=== PATIENT | female | born 1970 | race Caucasian/White ===

== ENCOUNTER 2022-03-09 10:40 | Outpatient (CLI) | payer BC, SELFPAY ==
[2022-03-09 18:15] LABS: Vitamin D 25 Hydroxy* 30 ng/mL (30-80)
[2022-03-09 18:30] LABS: TSH With Reflex to FT4* 0.022 uIU/mL (0.270-4.200)
[2022-03-09 20:25] LABS: Free T4 Free Thyroxine* 1.76 ng/dL (0.70-1.85)
[2022-03-11 22:09] LABS: Total T3 127 ng/dL (80-200)
== END 2022-03-09 10:41 | disposition home or self-care (01) ==
PROVIDERS: PCP Nurse Practitioner Family; Visit Provider Nurse Practitioner Family
DX: F41.9 Anxiety disorder, unspecified (principal); E03.9 Hypothyroidism, unspecified
CPT/HCPCS: 82306; 84439; 84443; 84480

== ENCOUNTER 2022-04-08 13:49 | Emergency (ER) | payer BC, SELFPAY ==
[2022-04-08 13:55] VITALS: BP 140/86; PULSE 84; TEMP 37.4; O2SAT 98; BMI 19.4
--- NOTE | 2022-04-08 14:51 | ED_ITS ---
HPI - Anxiety General Chief Complaint: Anxiety Stated Complaint: Anxious Time Seen by Provider: 04/08/22 13:50 History of Present Illness HPI narrative: This 51-year-old female comes in with complaints of anxiety. She does not have a history of depression and anxiety but since her 24-year-old son has developed epilepsy she has had trouble sleeping and has lots of anxiety. She was seen by her primary physician a couple months ago and prescription for BuSpar and Xanax was provided. She was very cautious about starting something that could be come addictive but did benefit from the Xanax. She has not taken the BuSpar. She did increase her Xanax 0.5 mg intake up to 3 times a day which was consistent with the prescriptions provided for her. She realizes that she needs to taper off of this and has begun doing so. She has cut back to 2 tablets daily for 10 days and now is on 0.25 mg twice daily for 10 days. She has not tolerated this more recent decrease and comes in with lots of anxiety. She does not feel unsafe to herself. She states that she really does not have depression. She does have insomnia. Related Data Home Medications Medication Instructions Recorded Confirmed levothyroxine 88 mcg tablet 88 mcg PO QDAY 02/05/22 03/09/22 Previous Rx's Medication Instructions Recorded zolpidem 5 mg tablet 5 mg PO ONCE #10 tabs 02/05/22 buspirone 5 mg tablet 5 mg PO TID #60 tabs 03/09/22 cholecalciferol (vitamin D3) 1,250 1,250 mcg PO QWEEK #12 caps 03/12/22 mcg (50,000 unit) capsule levothyroxine 75 mcg tablet 75 mcg PO QDAY #90 tabs 03/12/22 alprazolam 0.5 mg tablet 0.5 mg PO Q6H #28 tabs 04/06/22 hydroxyzine HCl 25 mg tablet 25 mg PO QID #30 tabs 04/08/22 lorazepam 0.5 mg tablet (Ativan) 0.5 mg PO BID PRN #30 tabs 04/08/22 sertraline 50 mg tablet 50 mg PO DAILY #30 tabs 04/08/22 Allergies Allergy/AdvReac Type Severity Reaction Status Date / Time epinephrine Allergy Unknown Verified 02/11/22 15:25 Sulfa (Sulfonamide Allergy Unknown Rash Verified 02/11/22 15:25 Antibiotics) Review of Systems Status of ROS: Reports: 10 or more systems reviewed and unremarkable except as noted in History and below Narrative: Constitutional: No fevers, no weight gain or loss. Eyes: No discharge. No vision changes. HENT: No congestion, no sore throat, no ear pain. Cardiovascular: No chest pain, no palpitations. Respiratory: No shortness of breath, no wheezes, no cough. Gastrointestinal: No abdominal pain, no vomiting, no diarrhea. Genitourinary: No dysuria, no hematuria. Musculoskeletal: Normal range of motion. Skin: No rashes, no pruritis. Neurological: No dizziness, weakness, sensory change, speech change. Endo/Heme/Allergies: No bruising or bleeding. No polydipsia. Pysch: no suicidality. Anxiety and insomnia as described above. All other systems reviewed and are negative. [facility] Surgical History S/P S/P cholecystectomy Status post hysteroscopic ablation of endometrium Family History Family/Other Breast cancer Other Coronary artery disease Thyroid disease Social History Smoking Status: Never smoker Little interest or pleasure in doing things: not at all Feeling down, depressed, or hopeless: not at all Exam Narrative: Exam Narrative: Constitutional: Well-developed, well-nourished, no acute distress. HEENT: Normocephalic, atraumatic. Neck: Normal range of motion. Nontender. Supple. Heart: Regular. No murmurs. Normal rate. Intact distal pulses. Lungs: Clear to auscultation. No chest discomfort. No wheezes, rhonchi, or rales. Abdomen: Normal bowel sounds. Nontender. No rebound tenderness. Genitalia: Deferred. Back: No midline tenderness. Normal range of motion. Extremities: Normal range of motion. No injury. Skin: Intact. No rash. Warm. No erythema or pallor. Neurologic: No altered sensation. No weakness. Alert and oriented. Psychiatric: No suicidality. Anxiety symptoms. Tearful. She reports insomnia. Nursing notes and vitals signs are reviewed. Const: Vital Signs, click to edit/add: Vital Signs - 24 hr 04/08/22 13:55 Temperature 99.4 F Pulse Rate [Left P ulse Oximeter] 84 Blood Pressure [Le ft Upper Arm] 140/86 H Pulse Oximetry 98 Course Vital Signs Vital signs: Initial Vital Signs Temperature 99.4 F 04/08/22 13:55 Temperature Source Temporal Artery Scan 04/08/22 13:55 Pulse Rate 84 04/08/22 13:55 Blood Pressure 140/86 H 04/08/22 13:55 Blood Pressure Mean 104 04/08/22 13:55 Blood Pressure Position Sitting 04/08/22 13:55 Pulse Oximetry 98 04/08/22 13:55 Vital Signs Temperature 99.4 F 04/08/22 13:55 Pulse Rate 84 04/08/22 13:55 Blood Pressure 140/86 H 04/08/22 13:55 Pulse Oximetry 98 04/08/22 13:55 Temperature 99.4 F 04/08/22 13:55 Pulse Rate 84 04/08/22 13:55 Blood Pressure 140/86 H 04/08/22 13:55 Pulse Oximetry 98 04/08/22 13:55 MDM - Anxiety MDM Narrative Medical decision making narrative: This patient has lots of anxiety partly due to attempting to wean off of Xanax. Additionally she has anxiety regarding the health of her son. She did observe him having a tonic clonic seizure and this memory is wanting her. She has di fficulty with sleep at night. Her son has been diagnosed and has begun treatment for epilepsy and recently had a change of medicines as the adverse effects seem to be more troubling than benefit for her son. This patient is not on an antidepressant which would be recommended to treat her anxiety without using an addictive medication. It seems that her taper off of Xanax is a good plan but may be too aggressive currently. I recommended a trial of Zoloft and stated that it may be less edgy with regard to tolerance and adverse effects if she used Ativan instead of Xanax. I also recommended hydroxyzine for additional help with insomnia and anxiety. She is resolved in wanting to come off of a benzodiazepine but is struggling currently with this. I did provide prescription for Zoloft 50 mg daily and advised her to take it toward evening as it may be a bit sedating. I also prescribed hydroxyzine for additional anti anxiety and insomnia benefits. I did also provide prescription for Ativan. I recommended that she suspend her taper for a couple weeks and stay on a steady dose of Ativan 0.5 mg once or twice daily. After this time hopefully the Zoloft will help her and she can resume the taper from all benzodiazepines. The patient and her are agreeable with this plan. I did offer a [facility] mental assessment but in a process of shared decision making this was declined for now. Discharge Plan Discharge Clinical Impression: Insomnia, Anxiety Patient Disposition: Home, Self-Care Condition: Stable Additional Instructions: Start Zoloft 50 mg daily. Use hydroxyzine as needed for additional relief of anxiety and insomnia. Hold Xanax and use Ativan 0.5 mg once or twice daily for the next couple weeks after which time a taper from all benzodiazepines can continue. Prescriptions: New lorazepam [Ativan] 0.5 mg tablet 0.5 mg PO BID PRNQty: 30 0RF hydroxyzine HCl 25 mg tablet 25 mg PO QID Qty: 30 0RF sertraline 50 mg tablet 50 mg PO DAILY Qty: 30 2RF No Action levothyroxine 88 mcg tablet 88 mcg PO QDAY zolpidem 5 mg tablet 5 mg PO ONCE Qty: 10 0RF buspirone 5 mg tablet 5 mg PO TID Qty: 60 0RF cholecalciferol (vitamin D3) 1,250 mcg (50,000 unit) capsule 1,250 mcg PO QWEEK Qty: 12 0RF levothyroxine 75 mcg tablet 75 mcg PO QDAY Qty: 90 0RF alprazolam 0.5 mg tablet 0.5 mg PO Q6H Qty: 28 0RF Rx Instructions: Must last 2 full weeks. Follow Up/Referrals: Lidia Zuleta, HEALTH PROGRAM DIRECTOR [Primary Care Provider] - Stand Alone Forms: [employer] Info Instructions
== END 2022-04-08 15:21 | disposition home or self-care (01) ==
PROVIDERS: Emergency Provider Emergency Medicine Emergency Medical Services; PCP Nurse Practitioner Family
DX: F41.9 Anxiety disorder, unspecified (principal); G47.00 Insomnia, unspecified
CPT/HCPCS: 99283; 99284; 99285

== ENCOUNTER 2022-04-14 16:13 | Emergency (ER) | payer BC, SELFPAY ==
[2022-04-14 16:18] VITALS: BP 115/80; PULSE 78; RESP 18; TEMP 37.3; O2SAT 97; BMI 19.4
--- NOTE | 2022-04-14 16:28 | ED.GENADULT ---
HPI - General Adult General Time Seen by Provider: 16:29 Date Seen: 04/14/22 Chief complaint: Ear/Nose/Throat Problem Stated complaint: Inner ear infection Time Seen by Provider: 04/14/22 16:14 Source: patient Mode of arrival: ambulatory Limitations: no limitations History of Present Illness HPI narrative: Patient is a 51 white female the complaints complains of some right ear discomfort, feeling of fullness, no fever, no chills. Has not had a lot of ear problems in the past. No other complaints no fevers, no neck pain, no sore throat. Related Data Home Medications Medication Instructions Recorded Confirmed levothyroxine 88 mcg tablet 88 mcg PO QDAY 02/05/22 03/09/22 Previous Rx's Medication Instructions Recorded zolpidem 5 mg tablet 5 mg PO ONCE #10 tabs 02/05/22 buspirone 5 mg tablet 5 mg PO TID #60 tabs 03/09/22 cholecalciferol (vitamin D3) 1,250 1,250 mcg PO QWEEK #12 caps 03/12/22 mcg (50,000 unit) capsule levothyroxine 75 mcg tablet 75 mcg PO QDAY #90 tabs 03/12/22 alprazolam 0.5 mg tablet 0.5 mg PO Q6H #28 tabs 04/06/22 hydroxyzine HCl 25 mg tablet 25 mg PO QID #30 tabs 04/08/22 lorazepam 0.5 mg tablet (Ativan) 0.5 mg PO BID PRN #30 tabs 04/08/22 sertraline 50 mg tablet 50 mg PO DAILY #30 tabs 04/08/22 amoxicillin 250 mg capsule 250 mg PO TID #21 caps 04/14/22 Allergies Allergy/AdvReac Type Severity Reaction Status Date / Time epinephrine Allergy Unknown Verified 02/11/22 15:25 Sulfa (Sulfonamide Allergy Unknown Rash Verified 02/11/22 15:25 Antibiotics) Review of Systems Narrative: Negative four year problem sinusitis, upper respiratory symptoms, COVID symptoms. No cough PFSH PFSH Surgical History S/P S/P cholecystectomy Status post hysteroscopic ablation of endometrium Family History Family/Other Breast cancer Other Coronary artery disease Thyroid disease Social History Smoking Status: Never smoker Do you use any of these nicotine containing products: None Second hand tobacco smoke exposure: No How often do you have a drink containing alcohol: never How often do you have six or more drinks on one occasion: Never AUDIT-C Alcohol total score: 0 Non-prescribed substance use: denies use Little interest or pleasure in doing things: not at all Feeling down, depressed, or hopeless: not at all service: Yes Exam Narrative: Exam Narrative: Objective: Temperature 99.1? HEEnt; some wax in the right ear but the eardrum that I can see on the right looks like there is mild redness consistent with otitis media left TM clear throat clear neck is supple no facial asymmetry Const: Vital Signs, click to edit/add: Vital Signs - 24 hr 04/14/22 16:18 Temperature 99.1 F Pulse Rate [Right Pulse Oximeter] 78 Respiratory Rate 18 Blood Pressure [Le ft Upper Arm] 115/80 Pulse Oximetry 97 Oxygen Delivery Me thod Room Air Course Vital Signs Vital signs: Initial Vital Signs Temperature 99.1 F 04/14/22 16:18 Temperature Source Temporal Artery Scan 04/14/22 16:18 Pulse Rate 78 04/14/22 16:18 Respiratory Rate 18 04/14/22 16:18 Blood Pressure 115/80 04/14/22 16:18 Blood Pressure Mean 91 04/14/22 16:18 Pulse Oximetry 97 04/14/22 16:18 Oxygen Delivery Method 04/14/22 16:18 Vital Signs Temperature 99.1 F 04/14/22 16:18 Pulse Rate 78 04/14/22 16:18 Respiratory Rate 18 04/14/22 16:18 Blood Pressure 115/80 04/14/22 16:18 Pulse Oximetry 97 04/14/22 16:18 Oxygen Delivery Method 04/14/22 16:18 Temperature 99.1 F 04/14/22 16:18 Pulse Rate 78 04/14/22 16:18 Respiratory Rate 18 04/14/22 16:18 Blood Pressure 115/80 04/14/22 16:18 Pulse Oximetry 97 04/14/22 16:18 Oxygen Delivery Method 04/14/22 16:18 Medical Decision Making MDM Narrative Medical decision making narrative: Earwax removal drops recommended as well as amoxicillin 250 t.i.d. x7 days, Tylenol Advil as needed. Recheck not improving. patient has cerumen an otitis media Discharge Plan Discharge Clinical Impression: Otitis media Patient Disposition: Home, Self-Care Condition: Stable Additional Instructions: Debrox ear wax removal drops 3 drops to the right ear 3 times a day x5 days. Amoxicillin 250 t.i.d. times 7 days, Tylenol Advil as needed, follow up as needed. Activity Level: No Restrictions Discharge Diet: Regular Prescriptions: New amoxicillin 250 mg capsule 250 mg PO TID Qty: 21 0RF No Action levothyroxine 88 mcg tablet 88 mcg PO QDAY zolpidem 5 mg tablet 5 mg PO ONCE Qty: 10 0RF buspirone 5 mg tablet 5 mg PO TID Qty: 60 0RF lorazepam [Ativan] 0.5 mg tablet 0.5 mg PO BID PRNQty: 30 0RF hydroxyzine HCl 25 mg tablet 25 mg PO QID Qty: 30 0RF sertraline 50 mg tablet 50 mg PO DAILY Qty: 30 2RF cholecalciferol (vitamin D3) 1,250 mcg (50,000 unit) capsule 1,250 mcg PO QWEEK Qty: 12 0RF levothyroxine 75 mcg tablet 75 mcg PO QDAY Qty: 90 0RF alprazolam 0.5 mg tablet 0.5 mg PO Q6H Qty: 28 0RF Rx Instructions: Must last 2 full weeks. Follow Up/Referrals: Lidia Zuleta CNP [Primary Care Provider] - Stand Alone Forms: [facility] Info Instructions
--- OUTSIDE RECORDS SUMMARY | 2022-04-14 16:42 | XMS_ITS | Clinical Summary ---
:1970 Author Organization [employer] [facility] [place] [address] Care Team Providers Name Role Phone Austin Andino MD Primary Care Provider Unavailable Allergies No known active allergies Medications Medication Sig Dispensed Refills Start Date End Date Status levothyroxine Take 1 tablet by 0 11/12/2014 Active (SYNTHROID) 88 mcg mouth once tablet daily. Active Problems Not on file Social History Tobacco Use Types Packs/Day Years Used Date Never Smoker Smokeless Tobacco: Never Used Alcohol Use Standard Drinks/Week Comments No 0 (1 standard drink = 0.6 oz pure alcoho l) Sex Assigned at Date Recorded Not on file Obstetrics History Last Filed Vital Signs Vital Sign Reading Time Taken Comments Blood Pressure 116/70 11/12/2014 8:05 AM CDT Pulse 72 11/12/2014 8:05 AM CDT Temperature - - Respiratory Rate - - Oxygen Saturation 100% 11/12/2014 8:05 AM CDT Inhaled Oxygen Concentration - - Weight 51.7 kg (114 lb) 11/12/2014 8:05 AM CDT Height 165.1 cm (5' 5) 11/12/2014 8:05 AM CDT Body Mass Index 18.97 11/12/2014 8:05 AM CDT Plan of Treatment Health Maintenance Due Date Last Done Comments COVID-19 vaccine series (#1) 01/06/1969 Tdap 1979 Depression screening for age 12+ 1980 BMI (ht and wt on same day) for age 18+ 1986 Hepatitis C screening for age 18-79 1986 Tetanus booster 1988 Colonoscopy through age 75 2013 Lipids for age 45-75 2013 Mammogram for age 45-75 2013 Zoster (shingles) series for age 50+ (1 of 2018 2) Pap test for age 21-65 12/15/2020 12/15/2017, 12/15/2017 Influenza for age 50-64 03/04/2022 Results Not on filefrom Last 3 Months Insurance Payer Benefit Plan / Subscriber ID Effective Dates Phone Addre ss Type Group BLUE [employer]OSS BL[employer] OF [id number] 2017-Present [address] [place] [address] Care Teams Television Cabinet Finisher Relationship Specialty Start Date End Date Austin Andino MD PCP - General Obstetrics and Gynecology
== END 2022-04-14 16:44 | disposition home or self-care (01) ==
LOC: ED 16:41
PROVIDERS: Emergency Provider Family Medicine; PCP Nurse Practitioner Family
DX: H66.92 Otitis media, unspecified, left ear (principal)
CPT/HCPCS: 99282; 99283

== ENCOUNTER 2022-05-11 13:40 | Outpatient (CLI) | payer BC, SELFPAY ==
--- OUTSIDE RECORDS SUMMARY | 2022-05-11 13:50 | XMS_ITS | Clinical Summary ---
:1970 Author Organization [employer] [facility] [place] [address] Care Team Providers Name Role Phone Austin [...] Type Group BL[employer] OF [id number] 2017-Present [address] [place] [address] Care Teams Customer Engineering Specialist Relationship Specialty Start Date End Date Austin Andino MD PCP - General Obstetrics and Gynecology
== END 2022-05-11 13:41 | disposition home or self-care (01) ==
LOC: LONREF 13:40
PROVIDERS: PCP Nurse Practitioner Family; Visit Provider Family Medicine
DX: E03.9 Hypothyroidism, unspecified (principal)
CPT/HCPCS: 84443

== ENCOUNTER 2024-02-10 12:57 | Emergency (ER) | payer OTHER, SELFPAY ==
[2024-02-10 13:04] VITALS: BP 136/80; PULSE 78; RESP 18; TEMP 36.9; O2SAT 97; BMI 21.8
--- NOTE | 2024-02-10 13:44 | ED_ITS ---
HPI - General Adult General Chief complaint: Dizziness/Vertigo Stated complaint: dizzy, head concerns Time Seen by Provider: 02/10/24 13:09 History of Present Illness HPI narrative: This 53-year-old female comes in with her because of a couple months of vision changes with feeling of off balance and associated anxiety. She has been in to see eye specialists and has had her blood checked. She is scheduled for an MRI in 3 weeks but they come in today hoping to get an MRI sooner. She has started fluoxetine about 10 or 12 days ago and feels that this is starting to help some with her anxiety. She was at an healthcare science specialist to said that she had been ocular vision, that is her gaze is not conjugate it and causing the symptoms. She has had her thyroid checked. She does not report any other symptoms except she does have pretty significant headache that seems to be related to these symptoms. Related Data Home Medications ?Medication ?Instructions ?Recorded ?Confirmed fluoxetine 20 mg capsule 20 mg PO DAILY 02/10/24 02/10/24 hydroxyzine HCl 10 mg tablet 10 mg PO 3XD PRN panic attack 02/10/24 02/10/24 levothyroxine 88 mcg tablet 88 mcg PO DAILY 02/10/24 02/10/24 Previous Rx's ?Medication ?Instructions ?Recorded clobetasol 0.05 % topical ointment 1 applic topical QHS #15 grams 09/10/22 ketorolac 10 mg tablet 10 mg PO Q8H 5 days #15 tabs 02/10/24 methylprednisolone 4 mg tablets in See Rx Instructions PO .COMPLEX 02/10/24 a dose pack (Medrol (Carlyle)) #21 ea ondansetron HCl 4 mg tablet 4 mg PO Q6H #15 tabs 02/10/24 Allergies Allergy/AdvReac Type Severity Reaction Status Date / Time epinephrine Allergy Unknown Verified 02/10/24 13:11 Sulfa (Sulfonamide Allergy Unknown Rash Verified 02/10/24 13:11 Antibiotics) Review of Systems Status of ROS: Reports: 10 or more systems reviewed and unremarkable except as noted in History and below Narrative: Constitutional: No fevers, no weight gain or loss. Eyes: No discharge. Vision changes as described above. HENT: No congestion, no sore throat, no ear pain. Cardiovascular: No chest pain, no palpitations. Respiratory: No shortness of breath, no wheezes, no cough. Gastrointestinal: No abdominal pain, no vomiting, no diarrhea. Genitourinary: No dysuria, no hematuria. Musculoskeletal: Normal range of motion. Skin: No rashes, no pruritis. Neurological: No dizziness, weakness, sensory change, speech change. Endo/Heme/Allergies: No bruising or bleeding. No polydipsia. Pysch: no suicidality, no insomnia. She has anxiety symptoms. All other systems reviewed and are negative. [facility] Medical History H/O Graves' disease Surgical History S/P S/P cholecystectomy Status post hysteroscopic ablation of endometrium Family History Family/Other Breast cancer Other Coronary artery disease Thyroid disease Social History Smoking Status: Never smoker Do you use any of these nicotine containing products: None Second hand tobacco smoke exposure: No How often do you have a drink containing alcohol: never How often do you have six or more drinks on one occasion: Never AUDIT-C Alcohol total score: 0 Non-prescribed substance use: denies use Little interest or pleasure in doing things: not at all Feeling down, depressed, or hopeless: not at all service: Yes Exam Narrative: Exam Narrative: Constitutional: Well-developed, well-nourished, no acute distress. HEENT: Normocephalic, atraumatic. Neck: Normal range of motion. Nontender. Supple. Heart: Regular. No murmurs. Normal rate. Intact distal pulses. Lungs: Clear to auscultation. No chest discomfort. No wheezes, rhonchi, or rales. Abdomen: Normal bowel sounds. Nontender. No rebound tenderness. Genitalia: Deferred. Back: No midline tenderness. Normal range of motion. Extremities: Normal range of motion. No injury. Skin: Intact. No rash. Warm. No erythema or pallor. Neurologic: No altered sensation. No weakness. Alert and oriented. Psychiatric: No suicidality. No anxiety or depression. No insomnia. Nursing notes and vitals signs are reviewed. Const: Vital Signs, click to edit/add: Vital Signs - 24 hr 02/10/24 13:04 Temperature 98.5 F Pulse Rate [Pulse Oximeter] 78 Respiratory Rate 18 Blood Pressure [Ri ght Upper Arm] 136/80 Pulse Oximetry 97 Oxygen Delivery Me thod Room Air Course Vital Signs Vital signs: Initial Vital Signs Temperature 98.5 F 02/10/24 13:04 Temperature Source Temporal Artery Scan 02/10/24 13:04 Pulse Rate 78 02/10/24 13:04 Pulse Rhythm Regular 02/10/24 13:04 Pulse Strength 3+ Normal 02/10/24 13:04 Respiratory Rate 18 02/10/24 13:04 Blood Pressure 136/80 02/10/24 13:04 Blood Pressure Mean 98 02/10/24 13:04 Blood Pressure Position Sitting 02/10/24 13:04 Pulse Oximetry 97 02/10/24 13:04 Oxygen Delivery Method Room Air 02/10/24 13:04 Vital Signs Temperature 98.5 F 02/10/24 13:04 Pulse Rate 78 02/10/24 13:04 Respiratory Rate 18 02/10/24 13:04 Blood Pressure 136/80 02/10/24 13:04 Pulse Oximetry 97 02/10/24 13:04 Oxygen Delivery Method Room Air 02/10/24 13:04 Temperature 98.5 F 02/10/24 13:04 Pulse Rate 78 02/10/24 13:04 Respiratory Rate 18 02/10/24 13:04 Blood Pressure 136/80 02/10/24 13:04 Pulse Oximetry 97 02/10/24 13:04 Oxygen Delivery Method Room Air 02/10/24 13:04 Medications Administered Medications: Discontinued Medications Generic Name Dose Route Start Last Admin Trade Name Chriss PRN Reason Stop Dose Admin Lorazepam 1 mg 02/10/24 14:05 02/10/24 14:12 Lorazepam 1 Mg Tablet PO 02/10/24 14:06 1 mg ONCE ONE Administration Medical Decision Making MDM Narrative Medical decision making narrative: This patient comes in hoping to get an MRI sooner than what was scheduled about 3 weeks from now. I did check with availability and this was able to be arranged today. MRI of the head returns with no acute findings that would explain her symptoms. This was reassuring to the patient. She is in the process of trying to figure out what is causing her symptoms but does report that a healthcare science specialist said that there is some dysconjugate gaze. The patient also reports a headache with nausea symptoms. She is okay to be discharged home and will follow-up with her regular providers. I did provide prescription for Medrol Dosepak, Toradol, and Zofran. Imaging Data MRI - head: Radiologist's impression: 1. Punctate focus of hyperintensity on diffusion-weighted imaging in the right parietal lobe (series 5 image 41) likely representing a tiny subacute infarct. 2. No evidence of recent or remote intracranial hemorrhage. 3. Few scattered foci of T2 prolongation within the white matter of both cerebral hemispheres, nonspecific, but typical of mild chronic small vessel ischemic changes. Discharge Plan Discharge Clinical Impression: Dysconjugate gaze Patient Disposition: Home w/ Parent or Adult Condition: Stable Additional Instructions: Take medication as needed and indicated. Follow up with MD as scheduled. Return if worsening. Prescriptions: New ondansetron HCl 4 mg tablet 4 mg PO Q6H Qty: 15 0RF ketorolac 10 mg tablet 10 mg PO Q8H 5 Days Qty: 15 0RF methylprednisolone [Medrol (Carlyle)] 4 mg tablets,dose pack See Rx Instructions .ROUTE .COMPLEX Qty: 21 0RF Rx Instructions: orally per package directions No Action levothyroxine 88 mcg tablet 88 mcg PO DAILY hydroxyzine HCl 10 mg tablet 10 mg PO 3XD PRN (Reason: panic attack) fluoxetine 20 mg capsule 20 mg PO DAILY clobetasol 0.05 % ointment 1 applic topical QHS Qty: 15 1RF Rx Instructions: Apply twice weekly Follow Up/Referrals: Lidia Zuleta NET MOBILE DEVELOPER [Nurse Practitioner] - Stand Alone Forms: [facility] Info Instructions
--- NOTE | 2024-02-10 13:44 | CRLHL7_ITS ---
For Patients: As a result of the Century Cures Act, medical imaging exams and procedure reports are released immediately into your electronic medical record. You may view this report before your referring provider. If you have questions, please contact your health care provider. Indication: Vision changes. Technique: Multisequence multiplanar MRI of the brain without the use of intravenous contrast. Comparison: None available. Findings: Punctate focus of hyperintensity on diffusion-weighted imaging within the right parietal lobe (series 5, image 41) with intermediate signal intensity on the ADC map and associated T2/FLAIR hyperintensity. Few scattered additional foci of T2 prolongation within the white matter of both cerebral hemispheres. No abnormal susceptibility artifact. The ventricles are normal in size. Flow voids of the larger intracranial arteries are preserved. Bone marrow signal intensity of the calvarium is within normal limits. The orbits are unremarkable. The paranasal sinuses and mastoid air cells are predominantly clear. Impression: 1. Punctate focus of hyperintensity on diffusion-weighted imaging in the right parietal lobe (series 5 image 41) likely representing a tiny subacute infarct. 2. No evidence of recent or remote intracranial hemorrhage. 3. Few scattered foci of T2 prolongation within the white matter of both cerebral hemispheres, nonspecific, but typical of mild chronic small vessel ischemic changes. Dictated by Gabe Ngo MD @ 02/10/2024 3:32:42 PM (Electronically Signed)
[2024-02-10] MEDS: LORazepam 1 MG TABLET PO (14:12)
== END 2024-02-10 16:01 | disposition home or self-care (01) ==
PROVIDERS: Emergency Provider Emergency Medicine Emergency Medical Services; PCP Family Medicine
DX: H51.8 Other specified disorders of binocular movement (principal)
CPT/HCPCS: 70551; 99283; 99284; A9270